=== PATIENT | male | born 1985 | race Two or more races ===

== ENCOUNTER 2024-03-12 19:39 | Emergency (ER) | payer OTHER ==
[~2024-03-12] VITALS: Ht 188 cm; Wt 95.5 kg
[2024-03-12] MEDS: TETRACAINE HCL 0.5% OPTH(EYE) SOLN 4ML LEFTEYE ONE (20:17)
[2024-03-12] MEDS: FLUORESCEIN SOD OPTH TEST STRIP LEFTEYE ONE (22:14)
[2024-03-12] MEDS ORDERED: MOXI0.5D9 OP (23:36)
[2024-03-13 00:20] VITALS: BP 136/83; PULSE 79; RESP 17; TEMP 98.3; O2SAT 96
== END 2024-03-13 00:32 | disposition home or self-care (01) ==
LOC: ER 19:39
DX: T15.92XA Foreign body on external eye, part unspecified, left eye, initial encounter (principal); X58.XXXA Exposure to other specified factors, initial encounter; Y93.89 Activity, other specified; Y92.89 Other specified places as the place of occurrence of the external cause; Y99.8 Other external cause status